=== PATIENT | female | born 1950 ===

== ENCOUNTER 2017-07-02 13:14 | Emergency (ER) | payer SELFPAY ==
[2017-07-02 13:23] VITALS: RESP 20
[2017-07-02] MEDS ORDERED: Sodium Chloride 0.9% 500 ML IV ONE ×2 (13:50→13:58)
--- NOTE | 2017-07-02 14:00 | C.PDOC ---
History Of Present Illness 66 y/o female, with no significant PMHx, is sent to ED from clinic for evaluation of fever, cough, congestion, and body aches since last week. No other complaints. Time Seen by Provider: 07/02/17 13:30 Chief Complaint (Nursing): Fever History Per: Patient History/Exam Limitations: no limitations Onset/Duration Of Symptoms: Days Current Symptoms Are (Timing): Still Present Sick Contacts (Context): None Associated Symptoms: Fever, Cough, Myalgias, Nasal Congestion. denies: Sputum, Neck Pain, Sinus Drainage Ear Symptoms: Bilateral: None Recent travel outside of the [place]: No Additional History Per: Patient Past Medical History Reviewed: Historical Data, Nursing Documentation, Vital Signs Vital Signs: Last Vital Signs Temp 97.7 F 07/02/17 17:44 Pulse 79 07/02/17 17:44 Resp 20 07/02/17 17:44 BP 120/66 07/02/17 17:44 Pulse Ox 98 07/02/17 18:37 - Medical History PMH: HTN Family History: States: Unknown Family Hx - Social History Hx Alcohol Use: No Hx Substance Use: No - Immunization History Hx Tetanus Toxoid Vaccination: No Hx Influenza Vaccination: No Hx Pneumococcal Vaccination: No Review Of Systems Except As Marked, All Systems Reviewed And Found Negative. Constitutional: Positive for: Fever, Other (body aches) ENT: Positive for: Nose Congestion. Negative for: Ear Pain, Nose Discharge, Throat Pain Cardiovascular: Negative for: Chest Pain, Palpitations Respiratory: Positive for: Cough. Negative for: Shortness of Breath, Sputum Gastrointestinal: Negative for: Nausea, Vomiting, Abdominal Pain, Diarrhea Neurological: Negative for: Headache, Dizziness Physical Exam - Physical Exam Appears: Non-toxic, No Acute Distress Skin: Normal Color, Warm, Dry Head: Atraumatic, Normacephalic Eye(s): bilateral: Normal Inspection Oral Mucosa: Moist Neck: Supple Chest: Symmetrical Cardiovascular: Rhythm Regular, No Murmur Respiratory: No Accessory Muscle Use, Other (mildly coarse breath sounds bilaterally) Gastrointestinal/Abdominal: Soft, No Tenderness Back: No CVA Tenderness Extremity: Normal ROM, No Pedal Edema Neurological/Psych: Oriented x3, Normal Speech, Normal Cognition Gait: Steady ED Course And Treatment - Laboratory Results Result Diagrams: 07/02/17 14:48 07/02/17 14:48 ECG: Interpreted By Me, Viewed By Me ECG Rhythm: Sinus Rhythm ECG Interpretation: No Acute Changes Interpretation Of ECG: No acute ST/T wave changes. Rate From EC (bpm) O2 Sat by Pulse Oximetry: 98 Pulse Ox Interpretation: Normal Medical Decision Making Medical Decision Making: ro pna vs bronchitis, influenza - labs imaging pending Blood work, UA, CXR, Influenza AB ordered and reviewed. Patient was given Tylenol and IV fluids. 320: pt reassesed smiling in nad. cxr neg. k repleted. h/o of hypok, previous 3.2. pt asking for dc. states she feels well for dc and wishes to go home. given return precautions. tachycardia reslved. Disposition - Disposition Referrals: [facility] [Outside] [facility] [Outside] Disposition: HOME/ ROUTINE Disposition Time: 15:21 Condition: STABLE Additional Instructions: please follow up with your doctor. please return to er with worsening symptoms or concerns. Prescriptions: Azithromycin [Zithromax] 250 mg PO DAILY #4 tab Instructions: Hypokalemia (ED), Acute Bronchitis (ED) Forms: [employer] (Cook Islander) Print Language: WALLISIAN - Clinical Impression Clinical Impression: Bronchitis - Scribe Statement The provider has reviewed the documentation as recorded by the Scribe Ina Batista All medical record entries made by the Jackibe were at my direction and personally dictated by me. I have reviewed the chart and agree that the record accurately reflects my personal performance of the history, physical exam, medical decision making, and the department course for this patient. I have also personally directed, reviewed, and agree with the discharge instructions and disposition.
[2017-07-02 14:56] LABS: VENOUS BLOOD GAS BASE EXCESS 0.7 mmol/L (0.0-2.0); VENOUS BLOOD GAS PCO2 35 mmHg (40-60); VENOUS BLOOD PH 7.45 (7.32-7.43)
[2017-07-02 14:59] LABS: BASO % 0.5 % (0.0-2.0); EOS # 0.1 K/uL (0.0-0.7); EOS % 2.5 % (0.0-4.0); HEMATOCRIT 31.7 % (34.0-47.0); LYMPH # 0.5 K/uL (1.0-4.3); LYMPH % 16.7 % (20.0-40.0); MEAN CELL VOLUME 89.3 fL (81.0-99.0); MEAN CORPUSCULAR HGB CONC 34.8 g/dL (33.0-37.0); MEAN PLATELET VOLUME 8.9 fL (7.2-11.7); MONO # 0.2 K/uL (0.0-0.8); MONO % 7.1 % (0.0-10.0); NRBC % 0.1 % (0.0-2.0)
--- NOTE | 2017-07-02 15:00 | RAD ---
HISTORY: Cough. COMPARISON: No prior. TECHNIQUE: Chest PA and lateral FINDINGS: LUNGS: No active pulmonary disease. PLEURA: No significant pleural effusion identified. No pneumothorax apparent. CARDIOVASCULAR: No radiographic findings to suggest acute or significant cardiovascular disease. OSSEOUS STRUCTURES: No significant abnormalities. VISUALIZED UPPER ABDOMEN: Normal. OTHER FINDINGS: None. IMPRESSION: No active disease.
[2017-07-02 15:04] LABS: WHITE BLOOD COUNT 3.2 K/uL (4.8-10.8)
[2017-07-02 15:05] LABS: ALKALINE PHOSPHATASE 176 U/L (38-126); ALT/SGPT 25 U/L (9-52); AST/SGOT 33 U/L (14-36); BILIRUBIN,TOTAL 2.3 mg/dL (0.2-1.3); BLOOD UREA NITROGEN 9 mg/dL (7-17); CALCIUM 8.8 mg/dl (8.6-10.4); CARBON DIOXIDE 22 mmol/L (22-30); CHLORIDE 100 mmol/L (98-107); GFR AFRICAN-AMERICAN > 60; GLUCOSE,RANDOM 99 mg/dL (65-105); POTASSIUM 2.7 mmol/L (3.6-5.2); SODIUM 138 mmol/L (132-148); TOTAL PROTEIN 9.3 g/dL (6.3-8.3)
[2017-07-02] MEDS ORDERED: Potassium Chloride 20 mEq ER Tab PO STA (15:06)
[2017-07-02 15:08] LABS: INR 1.4
[2017-07-02 15:16] LABS: ALB/GLOB RATIO 0.8 (1.0-2.1)
[2017-07-02] MEDS ORDERED: Potassium Chloride 20 mEq ER Tab PO ONE (15:33)
[2017-07-02 15:51] LABS: URINE BILIRUBIN NEGATIVE (NEGATIVE); URINE BLOOD 2+ (NEGATIVE); URINE COLOR Yellow (YELLOW); URINE GLUCOSE (UA) NORMAL (Normal); URINE KETONE NEGATIVE (NEGATIVE); URINE LEUKOCYTE ESTERASE NEG Leu/uL (Negative); URINE PROTEIN NEGATIVE (NEGATIVE); URINE UROBILINOGEN NORMAL mg/dL (0.2-1.0); WBC URINE 1 /hpf (0-5)
[2017-07-02 15:52] LABS: RBC URINE 4 /hpf (0-3); URINE BACTERIA RARE (<OCC)
[2017-07-02 17:45] VITALS: BP 120/66; PULSE 79; TEMP 97.7
[2017-07-02 18:38] VITALS: O2SAT 98
== END 2017-07-02 18:20 | disposition home or self-care (01) ==
LOC: C.ER 13:14
DX: J40 Bronchitis, not specified as acute or chronic (principal); E87.6 Hypokalemia
CPT/HCPCS: 71020; 80053; 81001; 82803; 83880; 84484; 85025; 85610; 85730; 87804; 99285; J3480; J7040

== ENCOUNTER 2018-11-24 10:36 | Outpatient (CLI) | payer SELFPAY | END 2018-11-24 10:37 | disposition home or self-care (01) | LOC: C.LAB 10:36 ==

== ENCOUNTER 2018-11-27 09:53 | Outpatient (CLI) | payer SELFPAY | END 2018-11-27 09:54 | disposition home or self-care (01) | LOC: C.LAB 09:53 ==

== ENCOUNTER 2018-11-29 15:22 | Emergency (ER) | payer SELFPAY ==
[2018-11-29 15:23] VITALS: BMI 29.0
[2018-11-29 15:33] VITALS: O2SAT 97
--- NOTE | 2018-11-29 15:53 | C.PDOC ---
History Of Present Illness 68 year old female presents to ED s/p trip and fall resulting in left arm injury. Patient states that she fell outside in the street. Patient has PMHx of thyroid problems. Patient has no allergies. She denies loss of consciousness, head injury, numbness, and weakness. Time Seen by Provider: 11/29/18 15:37 Chief Complaint (Nursing): Upper Extremity Problem/Injury History Per: Patient History/Exam Limitations: no limitations Onset/Duration Of Symptoms: Hrs Current Symptoms Are (Timing): Still Present Quality: "Pain" Past Medical History Reviewed: Historical Data, Nursing Documentation, Vital Signs Vital Signs: Last Vital Signs Temp 97.7 F 11/29/18 15:30 Pulse 86 11/29/18 15:30 Resp 20 11/29/18 15:30 BP 174/90 H 11/29/18 15:30 Pulse Ox 97 11/29/18 15:30 - Medical History PMH: Anemia, Arthritis, HTN Denies: Chronic Kidney Disease Surgical History: No Surg Hx Family History: States: Unknown Family Hx - Social History Hx Alcohol Use: No Hx Substance Use: No - Immunization History Hx Tetanus Toxoid Vaccination: No Hx Influenza Vaccination: No Hx Pneumococcal Vaccination: No Review Of Systems Constitutional: Negative for: Fever, Weakness Musculoskeletal: Positive for: Arm Pain (left arm and wrist) Neurological: Negative for: Weakness, Numbness, Headache Physical Exam - Physical Exam Appears: Non-toxic, No Acute Distress Skin: Normal Color, Warm, Dry, No Rash Head: Atraumatic, Normacephalic Eye(s): bilateral: Normal Inspection, PERRL, EOMI Oral Mucosa: Moist Throat: No Erythema, No Exudate Neck: Normal ROM, Supple Chest: Symmetrical, No Deformity Cardiovascular: Rhythm Regular Respiratory: Normal Breath Sounds, No Accessory Muscle Use Gastrointestinal/Abdominal: Soft, No Tenderness Back: Normal Inspection, No CVA Tenderness Extremity: Tenderness (left distal wrist and distal forearm), Capillary Refill (<2 seconds), Deformity (left distal wrist), Swelling (left distal wrist and distal forearm ) Pulses: Left Radial: Normal, Right Radial: Normal Neurological/Psych: Oriented x3, Normal Speech, Normal Cognition, Normal Motor, Normal Sensation Gait: Steady ED Course And Treatment O2 Sat by Pulse Oximetry: 97 (in RA) Pulse Ox Interpretation: Normal - Other Rad Left Wrist X-ray X-Ray: Interpreted by Me, Viewed By Me Interpretation: IMPRESSION: 1. Acute nondisplaced comminuted impacted intra- articular fracture in the distal radius with moderate volar angulation. 2. Acute mildly displaced fracture in the styloid process of ulna. - CT Scan/US Left Wrist CT Other Rad Studies (CT/US): Interpreted By Me, Read By Radiologist CT/US Interpretation: Impression: Comminuted mildly displaced and dorsally angulated fracture of the left distal radius. Mildly displaced fracture of the ulnar styloid process. . Electronically signed on Nov 29, 2018 7:35:49 PM EDT by: Kavon Conte M.D., Certified by [facility], Diagnostic Radiology Orthopedic Time Out: Side verified, Site verified Procedure: Fracture reduction Other:: Tiff tong Consent obtained: Written Performed by: Mid-level Provider (Noni and Dr. Garcia) Diagnosis: Fracture Other:: Angulated comminuted distal radius fracture Type: Comminuted Other:: Hematoma block Anesthetic: Lidocaine 2% Capillary refill: Normal Distal Sensation: Normal Distal Motor Function: Normal Capillary Refill: Normal Compartment: Normal Distal Sensation: Normal Distal Motor Function: Normal Post-reduction Radiograph: Reduced (Improvement in alignment but still slightly angulated) Patient tolerated procedure: Well Medical Decision Making Medical Decision Making: Plan: Tylenol PO Left wrist X-ray 1606- call placed for Hand oncall Dr. Gomez, who states that it would go Ortho Case was discussed with Dr. Galo (Ortho oncall) who states to try to reduce the arm. Dr. Garcia at bedside and agrees with plan. Post-reductions films were sent to Dr. Galo. Dr. Galo states to order a CT scan and have the patient follow up in office tomorrow without fail as she will need surgery in the future. Sling applied. The patient was informed and the instructed and discharged home. Disposition - Disposition Referrals: Megan Galo MD [Staff Provider] - Disposition: HOME/ ROUTINE Disposition Time: 19:58 Condition: GOOD Additional Instructions: YOU MUST SEE DR. GALO TOMORROW AT 9AM. Prescriptions: Acetaminophen [Tylenol] 325 mg PO Q6 PRN #30 tab PRN Reason: Pain, Mild (1-3) traMADol [Ultram] 50 mg PO Q6 PRN #20 tab PRN Reason: Pain Instructions: Wrist Fracture (DC) Forms: [employer] (Greenlandic) - Clinical Impression Clinical Impression: Wrist fracture - PA / ELECTROFORMER / Resident Statement MD/DO has reviewed & agrees with the documentation as recorded. (Geni Arriaga) - Scribe Statement The provider has reviewed the documentation as recorded by the Scribe (Geni Arriaga) All medical record entries made by the Scribe were at my direction and personally dictated by me. I have reviewed the chart and agree that the record accurately reflects my personal performance of the history, physical exam, medical decision making, and the department course for this patient. I have also personally directed, reviewed, and agree with the discharge instructions and disposition.
--- NOTE | 2018-11-29 15:57 | RAD ---
Date of service: 11/29/2018 PROCEDURE: Left Wrist Radiographs. HISTORY: wrist injury, + deformity COMPARISON: None. TECHNIQUE: 4 views obtained. FINDINGS: BONES: There is diffuse bone demineralization. There is an acute nondisplaced comminuted impacted intra-articular fracture in the distal radius with moderate volar angulation. There is also an acute mildly displaced fracture in the styloid process of ulna. JOINTS: The joint spaces are preserved. No dislocation. SOFT TISSUES: There is moderate periarticular soft tissue swelling. OTHER FINDINGS: None. IMPRESSION: 1. Acute nondisplaced comminuted impacted intra-articular fracture in the distal radius with moderate volar angulation. 2. Acute mildly displaced fracture in the styloid process of ulna.
[2018-11-29] MEDS ORDERED: Lidocaine 2% Inj (20ml) INFIL ONE (16:29)
[2018-11-29] MEDS ORDERED: Lidocaine 2% MPF (5 ml) Inj ONE (16:37)
[2018-11-29 18:31] VITALS: RESP 16
[2018-11-29 20:27] VITALS: BP 146/87; PULSE 80; TEMP 97.7
--- NOTE | 2018-11-30 10:02 | CT ---
CT left wrist HISTORY: Distal radial fracture. COMPARISON: X-ray dated 11/29/2018 Technique: Multiple contiguous axial images were performed through the left wrist without the use of intravenous contrast. Subsequently, sagittal and coronal reformatted images were obtained. FINDINGS: Comminuted,distracted, and angulated fracture of the distal radius centered at the metaphysis. Vertically-oriented components seen at the radial aspect of the distal radius appear to have intra-articular components. Approximately 6 millimeter volar sided distraction of the distal fracture fragment. Displaced ulnar styloid fracture. Degenerative changes noted at the 1st carpometacarpal joint space with subchondral sclerosis and osteophytosis. Reticulation and edema within the circumferential subcutaneous soft tissues. Impression: Comminuted distracted and angulated fracture of the distal radius as described above with a suggestion of a small radial sided intraarticular component also as described above. Displaced ulnar styloid fracture. A preliminary report was generated at 7:35 p.m. on 11/29/[address] Kavon Conte from [employer].
--- NOTE | 2018-11-30 15:25 | RAD ---
Date of service: 11/29/2018 PROCEDURE: Left Wrist Radiographs. HISTORY: post-reduction COMPARISON: 11/29/2018. TECHNIQUE: 4 views obtained. FINDINGS: BONES: Improved alignment of distal radial fracture. Stable orientation of ulnar styloid fracture. JOINTS: Normal. No dislocation. SOFT TISSUES: Soft tissue swelling about the radial fracture. OTHER FINDINGS: None. IMPRESSION: Satisfactory postreduction radiographs. Soft tissue swelling attests to the acuity of the fracture. Limitations of the current study: Detail obscured by overlying fiberglass cast.
== END 2018-11-29 20:27 | disposition home or self-care (01) ==
LOC: C.ER 15:22
DX: S52.592A Other fractures of lower end of left radius, initial encounter for closed fracture (principal); W01.0XXA Fall on same level from slipping, tripping and stumbling without subsequent striking against object, initial encounter; Y92.410 Unspecified street and highway as the place of occurrence of the external cause

== ENCOUNTER 2018-12-04 11:07 | Emergency (ER) | payer SELFPAY ==
[2018-12-04 11:18] VITALS: BP 154/79; PULSE 76; RESP 18; TEMP 98.8; O2SAT 95; BMI 28.3
--- NOTE | 2018-12-04 11:51 | C.PDOC ---
History Of Present Illness 68 y/o female returns to the ED today for re-evaluation of left arm pain. Patient states she was seen here 5 days ago, treated for a hand fracture, and had a splint placed. She reports trying to see the orthopedist this week, however was turned away in the office due to lack of insurance. Patient now complains the splint is tight and she still has pain. Pain is unchanged from prior. Patient admits she has not filled prescriptions and is taking nothing for pain. No new trauma or re-injury. Time Seen by Provider: 12/04/18 11:51 Chief Complaint (Nursing): Upper Extremity Problem/Injury History Per: Patient History/Exam Limitations: no limitations Onset/Duration Of Symptoms: Days Current Symptoms Are (Timing): Still Present Past Medical History Reviewed: Historical Data, Nursing Documentation, Vital Signs Vital Signs: Last Vital Signs Temp 98.8 F 12/04/18 11:14 Pulse 76 12/04/18 11:14 Resp 18 12/04/18 11:14 BP 154/79 H 12/04/18 11:14 Pulse Ox 95 12/04/18 11:14 - Medical History PMH: Anemia, Arthritis, HTN Denies: Chronic Kidney Disease Family History: States: Unknown Family Hx - Social History Hx Alcohol Use: No Hx Substance Use: No - Immunization History Hx Tetanus Toxoid Vaccination: No Hx Influenza Vaccination: No Hx Pneumococcal Vaccination: No Review Of Systems Constitutional: Negative for: Fever Cardiovascular: Negative for: Chest Pain Respiratory: Negative for: Shortness of Breath Musculoskeletal: Positive for: Arm Pain Skin: Negative for: Rash, Lesions Neurological: Negative for: Numbness Physical Exam - Physical Exam Appears: Non-toxic, No Acute Distress Skin: Normal Color, Warm Head: Atraumatic, Normacephalic Eye(s): bilateral: Normal Inspection Oral Mucosa: Moist Neck: Normal ROM Chest: Symmetrical Respiratory: No Accessory Muscle Use, Other (Speaking in full sentences) Extremity: Left: Other (Left upper extremity w/ sugar tong splint in place; Cap refill < 2 sec to digits), Bilateral: Normal Color And Temperature Pulses: Left Radial: Normal, Right Radial: Normal Neurological/Psych: Oriented x3, Normal Speech, Normal Motor (able to move all digits), Normal Sensation Gait: Steady ED Course And Treatment O2 Sat by Pulse Oximetry: 95 (on RA) Pulse Ox Interpretation: Normal Medical Decision Making Medical Decision Making: Plan: Discussed case with Dr. Galo, who states patient should have been seen and advises patient to return immediately to the office for follow up. Patient counseled regarding plan and the importance of follow up with orthopedist. She verbalizes understanding of discharge plan. Disposition Counseled Patient/Family Regarding: Diagnosis, Need For Followup - Disposition Referrals: Megan Galo MD [Staff Provider] - Disposition: HOME/ ROUTINE Disposition Time: 12:00 Condition: STABLE Additional Instructions: YOU MUST SEE DR. GALO AND DR. BALTAZAR TODAY WITHOUT FAIL. THE FIRST SHOULD BE FREE. EMERGENCY DEPT REFERRAL. Instructions: Wrist Fracture (DC) Forms: [employer] (Micronesian) - POA Present On Arrival: None - Clinical Impression Clinical Impression: Wrist fracture - PA / [employer] / Resident Statement MD/DO has reviewed & agrees with the documentation as recorded. - Scribe Statement The provider has reviewed the documentation as recorded by the Scribe Aria De Souza All medical record entries made by the Scribe were at my direction and personally dictated by me. I have reviewed the chart and agree that the record accurately reflects my personal performance of the history, physical exam, medical decision making, and the department course for this patient. I have also personally directed, reviewed, and agree with the discharge instructions and disposition.
== END 2018-12-04 12:22 | disposition home or self-care (01) ==
LOC: C.ER 11:07
DX: S62.102G Fracture of unspecified carpal bone, left wrist, subsequent encounter for fracture with delayed healing (principal); X58.XXXD Exposure to other specified factors, subsequent encounter